=== PATIENT | female | born 2000 | race Caucasian/White ===

== ENCOUNTER 2025-07-14 01:55 | Emergency (ER) | payer BC, SELFPAY ==
[2025-07-14] VITALS (9 sets, daily range): BP systolic 114–132; BP diastolic 81–94; PULSE 82–98; BMI 22.1
[2025-07-14 02:53] LABS: Hematocrit 38.9 % (37.0-47.0); Hemoglobin 13.6 g/dL (12.0-16.0); Mean Corp Hgb Conc. 35.0 g/dL (33.0-37.0); Mean Corpuscular Volume 85.7 fL (81.0-99.0); Nucleated Red Blood Cells % 0 %; Platelet Count 268 10^3/uL (130-400); Red Cell Dist. Width 12.0 % (11.5-14.5)
[2025-07-14 03:15] LABS: Blood Urea Nitrogen 13 mg/dl (7-17); Calcium 9.3 mg/dl (8.4-10.2); Carbon Dioxide 26 mmol/L (22-30); Chloride 105 mmol/L (98-107); Glucose 110 mg/dl (70-99); Sodium 134 mmol/L (135-145); eGFR > 60.00
--- NOTE | 2025-07-14 03:28 | ED.GENMED ---
History of Present Illness
General
Chief Complaint: Fatigue
Source: patient and family
Exam Limitations: none
Time Seen by Provider: 07/14/25 03:11
Nursing documentation reviewed up to this point in time: agreed with
History of Present Illness
History of Present Illness:
24-year-old MTF patient presenting to the emergency department today with concerns of generalized weakness fatigue lightheadedness that occurred at home a few hours prior to arrival. Denies any specific chest pain shortness of breath palpitations
nausea vomiting or recent illness. No fevers.
Past History
Past History
ED Past Medical History: Other (Transgender, depression, anxiety, cutting)
ED Past Surgical History: None
Social History
Tobacco: Non-smoker
Review of Systems
Review of Systems
Allergies reviewed?: Yes
All Other Systems: ROS reviewed and negative except as documented in HPI and ROS
Phy Exam
Physical Exam
Physical Exam:
GENERAL: Alert , in no apparent distress
EYE: pupils equal and reactive
NECK: Supple, no significant adenopathy.
ENT: o/p clr, mmm.
CARDIAC: Regular rate and rhythm .
LUNGS: Clear breath sounds bilaterally, no acute respiratory distress, no wheezes/rales/rhonchi
ABDOMEN: Soft, without focal tenderness, no r/g, no cvat
NEUROLOGICAL: Alert and oriented, no focal neuro deficits
SKIN: Warm and dry, skin intact.
MUSCULOSKELETAL: No edema, well perfused.
PSYCH: Normal and appropriate interaction.
Course
Orders/Labs/Results
Orders:
Orders
07/14/25 02:04
EKG [Electrocardiogram (*1)] Urgent
Reason for Study: Chest Pain
EKG- Treatment ONCE
07/14/25 02:41
Basic Metabolic Panel Urgent
Comment: NO K
Complete Blood Count/With Diff Urgent
TSH Reflex To Free T4 Urgent
Comment: ADD ON
07/14/25 03:29
Add On- LAB Urgent
Tests Added?: tsh free t4
07/14/25 03:34
Orthostatic VS- Treatment ONCE
07/14/25 03:56
Urinalysis Reflex To Culture Urgent
Date Specimen was Collected: 07/14/25
Time Specimen was Collected: 03:43
07/14/25 04:01
Hep Liver [[id number]] Urgent
Potassium Urgent
Abnormal Lab Results
07/14/25 07/14/25
02:41 04:01
Absolute Monos (auto) 0.7 H 10^3/uL
(0.1-0.6)
Sodium 134 L mmol/L
(135-145)
Glucose 110 H mg/dl
(70-99)
Total Bilirubin < 0.1 L mg/dl
(0.2-1.3)
07/14/25 02:41
07/14/25 04:01
Vital Signs
Initial and Last Documented VS:
Initial Vital Signs
Temp Pulse Resp BP Pulse Ox
98.9 F 90 18 132/94 98
07/14/25 01:59 07/14/25 01:59 07/14/25 01:59 07/14/25 01:59 07/14/25 01:59
Last Documented Vital Signs
Temp Pulse Resp BP Pulse Ox
98.9 F 88 24 121/89 98
07/14/25 01:59 07/14/25 04:00 07/14/25 04:00 07/14/25 04:00 07/14/25 04:07
MDM/Problems Addressed
MDM/Problems Addressed:
Patient is generally well-appearing here symptoms described as generalized weakness fatigue feeling lightheaded at home but not fully passing out. On arrival vital signs are normal patient in no distress EKG without arrhythmia no signs of ischemia
normal heart lung examination. CBC normal. No evidence of any emergent pathology at this time stable for close outpatient follow-up. Return precautions given.
*Pulse Oximetry
SaO2: 98
Oxygen Mode of Delivery: Room air
Patient hypoxic: no (98)
*Critical Care Note
Total Time (30-74mins, 75-104mins- exclusive of procedures): Not Applicable
ED Attending Note
-
Portions of this chart may have been created with voice recognition software.� Occasional wrong word or��sound alike� substitutions may have occurred due to the inherent limitations of voice recognition software.
Discharge Plan
Departure
Patient Disposition: Home (Routine Discharge)
Date of Disposition: 07/14/25
Time of Disposition: 05:02
Patient with high blood pressure during this ER visit?: No
Condition: Good
Covid-19: Not Applicable
Discharge Problem:
Fatigue
Instructions: Generalized Weakness (DC)
Prescriptions:
No Action
Amantadine
100 mg PO DAILY
Benadryl
25 mg PO HS
Estradiol
2 mg PO BID
Fluoxetine HCl
20 mg PO DAILY
Lamictal 100 MG
50 mg PO BID
Lamotrigine
25 mg PO DAILY
Lorazepam
1 mg PO Q12H PRN (Reason: anxiety - RARE)
Melatonin
3 mg PO HS
G-Dwqojh-i-Cysteine
600 mg PO DAILY
Omeprazole
20 mg PO DAILY PRN (Reason: reflux)
Riboflavin 100 MG
200 mg PO DAILY
Spironolactone
100 mg PO BID
lorazepam 1 MG tablet
1 mg PO DAILY PRN (Reason: anxiety) Qty: 3 0RF
Referrals:
Paradise Cain MD [Family Provider, Internal Medicine]
Activity Restrictions/Additional Instructions:
You came to the emergency department today with concerns of multiple symptoms. Here you have a reassuring assessment. Please follow closely with a primary care doctor within 1 week. Return for any worsening, new or concerning symptoms.
Interventions
Interventions:
*Risk Screen - Suicide Last Done: 07/14/25 01:59
*General Assessment Last Done: 07/14/25 01:59
*Neglect/Abuse Screening Last Done: 07/14/25 04:04
*ED- Fall Risk Assessment Last Done: 07/14/25 01:59
*ED COVID-19 Vaccine History Last Done: 07/14/25 01:59
*ED Influenza Vaccine History Last Done: 07/14/25 01:59
Discharge Date and Time
Print Language: TAJIK
[2025-07-14 04:14] LABS: Urine Character Clear (Clear)
[2025-07-14 04:39] LABS: ALT (SGPT) 16 U/L (0-35); AST (SGOT) 16 U/L (14-36); Albumin 4.2 g/dl (3.5-5.0); Alkaline Phosphatase 50 U/L (38-126); Potassium 4.1 mmol/L (3.5-5.1); Total Protein 6.4 g/dl (6.3-8.2)
== END 2025-07-14 05:15 | disposition home or self-care (01) ==
LOC: EMR 01:55
PROVIDERS: Physician Assistant; EMERGENCY PHYSICIAN Emergency Medicine; FAMILY PHYSICIAN Internal Medicine
DX: R53.1 Weakness (principal); F41.9 Anxiety disorder, unspecified; F32.A Depression, unspecified
CPT/HCPCS: 99284; 80048; 80076; 81003; 84132; 84443; 85025; 93005